=== PATIENT | male | born 1980 | race Caucasian/White ===

== ENCOUNTER 2022-03-17 19:08 | Emergency (ER) | payer OTHER, SELFPAY ==
[2022-03-17 19:27] VITALS: BP 98/64; PULSE 64; RESP 18; TEMP 36.7; O2SAT 98
--- NOTE | 2022-03-17 19:51 | ED.URI ---
HPI - URI/Sore Throat General Chief Complaint: Upper Respiratory Infection Stated Complaint: congestion,cough Time Seen by Provider: 03/17/22 19:51 Source: patient Mode of arrival: ambulatory Limitations: no limitations History of Present Illness HPI Narrative: 41-year-old male presents with complaint of sinus congestion, nasal congestion, sore throat, postnasal drainage, fatigue for 3 days. Afebrile. Is taking Mucinex and Sudafed to treat his symptoms. Reports both of his children positive for RSV. States his wanted him to come appearing be tested for everything else to Rule it out. All systems reviewed and negative except as noted above. Related Data Home Medications Medication Instructions Recorded Confirmed No Home Medications 03/17/22 03/17/22 Allergies Allergy/AdvReac Type Severity Reaction Status Date / Time No Known Allergies Allergy Verified 03/17/22 19:35 Review of Systems Review of Systems: CONSTITUTIONAL: Denies fever, chills, or sweats. Reports fatigue. EYES: Denies visual changes, redness, or discharge. ENT: Reports rhinorrhea, congestion, sore throat. Denies otalgia. CARDIOVASCULAR: Denies chest pain, palpitations, or edema. RESPIRATORY: Denies cough or dyspnea. GASTROINTESTINAL: Denies abdominal pain, nausea, vomiting, or diarrhea. GENITOURINARY: Denies dysuria or hematuria. SKIN: Denies rash or itching. MUSCULOSKELETAL: Denies back pain, joint pain, or myalgia. NEUROLOGIC: Denies headache, numbness, or weakness. PSYCHIATRIC: Denies anxiety or depression. All other systems reviewed are negative, except as documented in HPI. PMFSH Comments At time of signature, agree with nursing past medical, surgical, social and family history. There is no relevant family history pertinent to the presenting complaint. Exam Narrative: GENERAL: This is a well-nourished, well-developed patient. Patient ill-appearing but no distress. HEAD: normocephalic, atraumatic. EYES: PERRL. Sclera clear/white. Conjunctiva erythematous bilaterally. EARS: External ears normal, auditory canals clear and without drainage, Fluid bilateral TMs without erythema or perforation. NOSE: External nose normal with Clear nasal drainage, erythema to both nares. THROAT: Mucous membranes moist, posterior pharynx clear. NECK: Neck supple, non-tender without lymphadenopathy, masses or thyromegaly. CARDIOVASCULAR: Regular rate and rhythm without murmurs, gallops, or rubs. RESPIRATORY: Clear to auscultation. Breath sounds equal bilaterally. No wheezes, rales, or rhonchi. SKIN: warm, Dry, intact with no suspicious lesions or rash, good texture and turgor. NEURO: awake, alert, and oriented to person, place and time. There were no obvious focal neurologic abnormalities. EXTREMITIES: No joint tenderness, effusion, or edema noted. Course Course Level of Care: Express Care Visit Vital Signs Vital signs: Vital Signs Temperature 36.7 C 03/17/22 19:27 Pulse Rate 64 03/17/22 19:27 Respiratory Rate 18 03/17/22 19:27 Blood Pressure 98/64 L 03/17/22 19:27 Pulse Oximetry 98 03/17/22 19:27 Oxygen Delivery Room Air 03/17/22 19:27 Temperature 36.7 C 03/17/22 19:27 Pulse Rate 64 03/17/22 19:27 Respiratory Rate 18 03/17/22 19:27 Blood Pressure 98/64 L 03/17/22 19:27 Pulse Oximetry 98 03/17/22 19:27 Oxygen Delivery Room Air 03/17/22 19:27 Reviewed MDM - URI/Sore Throat MDM Narrative Medical decision making narrative: Patient is aware of diagnosis, understands and agrees to treatment plan. Anticipatory guidance given. Patient agrees to follow-up as directed and is aware of reasons to seek care at the emergency department. Portions of this record may have been created with voice recognition software Negative influenza and COVID test. Symptoms are viral. Exposure to RSV. Differential Diagnosis Differential diagnosis: Likely upper respiratory infection, sinusitis, viral infec
== END 2022-03-17 20:04 | disposition home or self-care (01) ==
PROVIDERS: Emergency Provider Nurse Practitioner Family; PCP Internal Medicine
DX: J06.9 Acute upper respiratory infection, unspecified (principal); Z20.828 Contact with and (suspected) exposure to other viral communicable diseases; Z20.822 Contact with and (suspected) exposure to COVID-19
CPT/HCPCS: 87081; 87426; 87804; 99213; C9803; G0463

== ENCOUNTER 2024-09-15 17:34 | Emergency (ER) | payer OTHER, SELFPAY ==
--- NOTE | 2024-09-15 17:36 | ED_ITS ---
HPI - Extremity Injury (Lower) General Chief Complaint: Skin/Abscess/Foreign Body Stated Complaint: RT Leg Pain Time Seen by Provider: 09/15/24 17:36 Source: patient Mode of arrival: ambulatory Limitations: no limitations History of Present Illness HPI Narrative: Patient is a 44-year-old male who presents with right a leg calf pain and swelling surrounding wound. Patient was bit by unknown insect in the area has since become red, warm to touch and tender. Denies any fever, chills, nausea, vomiting, diarrhea. Denies any red streaking from wound or drainage. Patient has tried to pop wound 2 or 3 times after showering and Related Data Allergies Allergy/AdvReac Type Severity Reaction Status Date / Time No Known Allergies Allergy Verified 09/15/24 17:47 Review of Systems 2 Review of Systems: All systems reviewed & are unremarkable except as noted in HPI and below Constitutional: Constitutional: Denies body ache(s), Denies chills, Denies fatigue, Denies fever(s), Denies headache(s), Denies malaise and Denies weakness Eyes: Eyes: Denies blurry vision, Denies irritation and Denies loss of vision ENT: Denies otalgia, Denies headache(s), Denies nasal discharge, Denies sinus pain and Denies sore throat Cardiovascular: Cardiovascular: Denies chest pain, Denies irregular heart rhythm and Denies dyspnea Respiratory: Respiratory: Denies dyspnea Gastrointestinal: Gastrointestinal: Denies abdominal pain, Denies melena, Denies hematochezia, Denies diarrhea, Denies nausea and Denies vomiting Musculoskeletal: Musculoskeletal: Denies back pain, Denies myalgias and Denies arthralgias Integumentary/Breasts: Skin/Breast: Denies pruritus, Reports erythema, Denies rash and Reports skin swelling Neurologic: Denies headache(s), Denies loss of vision and Denies weakness Psychiatric: Psychiatric: Reports no additional psychiatric complaints Endocrine: Endocrine: Denies fatigue PMFSH Comments At time of signature, agree with nursing past medical, surgical, social and family history. There is no relevant family history pertinent to the presenting complaint. Exam 2 Const: General: cooperative, healthy appearing, comfortable, no acute distress and well nourished Nutritional Appearance: well nourished O rientation/consciousness: patient oriented x3 Limitations: no limitations HENMT: Head: normal to inspection, normocephalic and atraumatic Ears: h earing grossly normal bilaterally and external ears normal Face/Nose/Sinus: N ormal external nose present, normal facial exam and face symmetric Face and sinus: normal facial exam and face symmetric Mouth: Yes lip normal Eyes: General: appearance normal, both eyes and all related structures A lignment and Position: alignment normal and position normal Periorbital: p eriorbital findings normal Eyelids: eyelids normal Pupils: Equal, round and reactive pupils present EOM: EOMs intact bilaterally Neck: Neck: normal visual inspection, full ROM and supple Chest: Chest palpation & inspection: normal inspection of the chest Resp: Effort & Inspection: normal respiratory effort and able to speak in complete sentences Auscultation: clear to auscultation bilaterally Cardio: Rate: regular rate Rhythm: regular rhythm Heart sounds: S1 normal heart sound present and S2 normal heart sound present GI: Inspection: normal to inspection Skin: General skin exam: normal color and no rashes or lesions noted Full body images: 1. 2 x 3 cm area of erythema with 3 x 4 area of induration surrounding. Scab in center with no drainage. No red streaking up the leg Neuro: General: patient oriented x3 and moves all extremities Cranial nerves: Yes Equal, round and reactive pupils present Speech: normal speech Gait exam (Neuro): Normal gait present Extrem: General: normal to inspection, full ROM and no edema Psych: Appearance: grossly normal and well kempt Mental Status: mental status grossly normal Speech and movement: Normal speech and movement present Affect: normal affect Attitude: cooperative Thought process: Normal thought process present Course Course Emergency Course: Patient is aware of diagnosis, understands and agrees to treatment plan. Anticipatory guidance given. Patient agrees to follow-up as directed and is aware of reasons to seek care at the emergency department. Portions of this record may have been created with voice recognition software Level of Care: Express Care Visit Vital Signs Vital signs: Vital Signs Temperature 36.8 C 09/15/24 17:43 Pulse Rate 73 09/15/24 17:43 Respiratory Rate 18 09/15/24 17:43 Blood Pressure 117/80 09/15/24 17:43 Pulse Oximetry 100 09/15/24 17:43 Oxygen Delivery Room Air 09/15/24 17:43 Temperature 36.8 C 09/15/24 17:43 Pulse Rate 73 09/15/24 17:43 Respiratory Rate 18 09/15/24 17:43 Blood Pressure 117/80 09/15/24 17:43 Pulse Oximetry 100 09/15/24 17:43 Oxygen Delivery Room Air 09/15/24 17:43 Reviewed MDM - Extremity Injury (Lower) MDM Narrative Medical decision making narrative: Pt well hydrated appearing, in no respiratory distress, hemodynamically stable. Recommend supportive care. The patient is stable at time of discharge the clinical impression was discussed and the patient was given the opportunity to ask questions, which were addressed as completely as possible given the information available at present. Anticipatory guidance and return to care precautions were discussed and the importance of primary care follow-up was stressed and encouraged. The patient voiced understanding of the plan, indications to return, and the need for follow-up. Exam findings show no acute concerns or changes Patient is appropriate for outpatient treatment and follow-up. Differential Diagnosis Differential diagnosis: Likely other (Cellulitis, insect bite, contact dermatitis, less likely DVT) Medical Records Attestation: I reviewed the patient's medical records. Discharge Plan Discharge Clinical Impression: Insect bites, Cellulitis Patient Disposition: Home Condition: Stable Instructions: Cellulitis (ED) Additional Instructions: Please follow up with your Primary Care Doctor within 48-72 hours - call for an appointment. Rest and elevate affected area; apply moist heat 3-4 times daily for 10-15 minutes. Clean with soap and water only; Avoid using alcohol and peroxide. Elevate the affected area if possible Please take Antibiotics as directed. For pain, you may take: Tylenol 650-1000mg by mouth every 4-6 hours. Do not exceed 4000mg in 24 hours. Advil (Ibuprofen) 600 mg by mouth every 6 hours. Do not exceed 2400mg in 24 hours. 8 AM: Tylenol 11 AM: Ibuprofen 2 PM: Tylenol 5 PM: Ibuprofen 8 PM: Tylenol 11 PM: Ibuprofen 2 AM: Tylenol 5 AM: Ibuprofen If you experience any worsening redness, swelling, streaking (red lines), fever or chills please go to the ER Patient Language: German Prescriptions: New cephalexin 500 mg capsule 500 mg PO QID 7 Days Qty: 28 0RF mupirocin 2 % ointment 1 applic topical BID Qty: 15 0RF Follow-up/Referrals: Kwame,Sandor Keys MD [Primary Care Provider] - 3 Days Time of Disposition: 18:11
--- OUTSIDE RECORDS SUMMARY | 2024-09-15 17:37 | XMS_ITS | Encounter Summary ---
Author Organization [facility] Address [address] [place] [address] Phone Care Team Providers Care Pig Machine Operator Helper Name Role Phone Sandor Puente MD Primary Care Provider [phone] Reason for Visit * Reason Comments Medication Refill Encounter Details Date Type Department Care Team (Late st Contact Info) Description 11/19/2019 Refill [facility] - Family Medicine [facility] [address] [place] [address] Sandor Puente MD [address] [address] Medication Refill Social History Tobacco Use Types Packs/Day Years Used Date Smoking Tobacco: Never Smokeless Tobacco: Never Alcohol Use Standard Drinks/Week Comments No 0 (1 standard drink = 0.6 oz pur e alcohol) PHQ-2 Answer Date Recorded PHQ-2 Score 0 12/19/2018 Sexually Active Control Partners Comments Not Currently Sex and Gender Information Value Date Recorded Sex Assigned at Not on file Legal Sex Male 12:04 AM CDT Gender Identity Not on file Sexual Orientation Not on file documented as of this encounter Miscellaneous Notes * Telephone Encounter - Sandor Puente MD - 11/19/2019 12:24 PM CDT Prescription pending signature * Telephone Encounter - Lucio Johnson RN - 11/19/2019 12:23 PM CDT Medication failed the protocol, provider to review and approve the medication order Requested Prescriptions Pending Prescriptions Disp Refills traMADol (ULTRAM) 50 MG Tablet [Pharmacy Med Name: TRAMADOL 50MG TABLETS] 60 Tab 0 Sig: TAKE 1 TABLET BY MOUTH EVERY 6 HOURS NEEDED FOR MODERATE OR MORE SEVERE PAIN Not Delegated - Analgesics: Opioid Agonists Failed - 11/19/2019 12:21 PM Failed - This refill cannot be delegated Passed - Valid encounter within last 6 months Past Office Visits Recent Outpatient Visits 4 months ago Gastroenteritis [facility] Sandor Puente MD 4 months ago Strain of lumbar region, initial encounter [facility] Sandor Puente MD 8 months ago Anxiety [facility] Sandor Duque MD 1 year ago Allergic dermatitis due to poison fran [facility] Maris Quintanilla APN, 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 1 year ago Acute left flank pain [facility] Sandor Duque MD Upcoming Appointments [facility] - Recent and Past Visits Recent Visits Date Type Provider Dept 07/17/19 Telemedicine [facility] 07/05/19 Telemedicine Sandor Puente MD [facility] 02/28/19 Office Visit Sandor Puente MD [facility] [place] 09/14/18 Office Visit Maris Mejia APN, JAJA [facility] [place] 08/17/18 Office Visit Sandor Puente MD [facility] [place] Showing recent visits within past 460 days with a meds authorizing provider and meeting all other requirements Future Appointments No visits were found meeting these conditions. Showing future appointments within next 90 days with a meds authorizing provider and meeting all other requirements * Telephone Encounter - Paris Clay - 11/19/2019 9:52 AM CDT - patient is calling in stating that he is completely out of his tramadol. Verified pharmacy with patient. Medication is already pended to med staff. Notifying medication management. 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
--- OUTSIDE RECORDS SUMMARY | 2024-09-15 17:37 | XMS_ITS | Encounter Summary ---
Author Organization [facility] Address [address] [place] [address] Phone Care Team Providers Care Event Promoter Name Role Phone Sandor Puente MD Primary Care Provider [phone] Reason for Visit * Reason Comments Medication Refill Encounter Details Date Type Department Care Team (Late st Contact Info) Description 07/13/2020 Refill [facility] [address] [place] [address] Sandor Puente MD [address] [address] Medication Refill Social History Tobacco Use Types Packs/Day Years Used Date Smoking Tobacco: Never Smokeless Tobacco: Never Alcohol Use Standard Drinks/Week Comments No 0 (1 standard drink = 0.6 oz pur e alcohol) PHQ-2 Answer Date Recorded Total Score - Questions 1-9 0 06/2020 Sexually Active Control Partners Comments Not Currently Sex and Gender Information Value Date Recorded Sex Assigned at Not on file Legal Sex Male 12:04 AM CDT Gender Identity Not on file Sexual Orientation Not on file documented as of this encounter Miscellaneous Notes * Telephone Encounter - Saniya Butterfield RN - 07/14/2020 2:30 PM CDT The original prescription was reordered on 07/14/2020 by Sandor Puente MD documented in this encounter Plan of Treatment Not on file documented as of this encounter Visit Diagnoses Not on filedocumented in this encounter Additional Health Concerns Assessment Noted Time PHQ-9 Depression Total Score: 0 05/07/19 21 3:00 PM 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
--- OUTSIDE RECORDS SUMMARY | 2024-09-15 17:37 | XMS_ITS | Encounter Summary ---
Author Organization [facility] Address [address] [place] [address] Phone Care Team Providers Care Viscose Cellar Charge Hand Name Role Phone Sandor Puente MD Primary Care Provider [phone] Reason for Visit * Reason Comments Medication Refill Encounter Details Date Type Department Care Team (Late st Contact Info) Description 06/15/2020 Refill [facility] - Family Medicine [facility] [address] [place] [address] Sandor Puente MD [address] [address] Medication Refill Social History Tobacco Use Types [...] Telephone Encounter - Saniya Butterfield RN - 06/16/2020 9:44 AM CDT The original prescription was reordered on 06/16/2020 by Sandor Puente MD * Telephone Encounter - Clendenen, Jackie, RN - 06/15/2020 3:35 PM CDT Duplicate documented in this encounter Plan of Treatment Not on file documented as of this encounter Visit Diagnoses Not on filedocumented in this encounter Additional Health Concerns Assessment Noted Time PHQ-9 Depression Total Score: 0 05/07/19 21 3:00 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
--- OUTSIDE RECORDS SUMMARY | 2024-09-15 17:37 | XMS_ITS | Clinical Summary ---
Author Organization [facility] Address [address] [place] [address] Phone Care Team Providers Care Fashion Director Name Role Phone Sandor Puente MD Primary Care Provider Allergies No known active allergies Medications No known medications Active Problems Problem Noted Date Diagnosed Date Grief reaction 11/18/2015 Depression with anxiety 11/18/2015 Immunizations Immunization Administration Dates Next Due Influenza Vaccine greater than 3 yrs 01/02/2014 Influenza Vaccine, Quadrivalent, PF 02/17/2018 Influenza, Seasonal, Injectable, Undefined 01/02 Tetanus Toxoid, Unspecified Formulation 08/03/19 14 Family History Medical History Relation Name Comments Congestive Heart Failure Mother Relation Name Status Comments Father Mother Social History Tobacco Use Types Packs/Day Years Used Date Smoking Tobacco: Never Smokeless Tobacco: Never Tobacco Cessation:Counseling Given: No Alcohol Use Standard Drinks/Week Comments No 0 (1 standard drink = 0.6 oz pur e alcohol) PHQ-2 Answer Date Recorded Total Score - Questions 1-9 0 06/2020 Sexually Active Control Partners Comments Not Currently Sex and Gender Information Value Date Recorded Sex Assigned at Not on file Legal Sex Male 12:04 AM CDT Gender Identity Not on file Sexual Orientation Not on file Last Filed Vital Signs Vital Sign Reading Time Taken Comments Blood Pressure 106/70 09/10/2022 9:56 AM CDT Pulse 58 09/10/2022 9:56 AM CDT Temperature 36.7 C (98.1 F) 09/10/2022 9:56 AM CDT Respiratory Rate 16 09/10/2022 9:56 AM CDT Oxygen Saturation 96% 09/10/2022 9:56 AM CDT Inhaled Oxygen Concentration - - Weight 93.6 kg (206 lb 4.8 oz) 09/10/2022 9:56 A M CDT Height 182.9 cm (6') 09/10/2022 9:56 AM CDT Body Mass Index 27.98 09/10/2022 9:56 AM CDT Plan of Treatment Health Maintenance Due Date Last Done Comments Hepatitis C Virus (HCV) Screening 1981 TdaP Immunization 1981 Hepatitis B Immunization (1 of 3 - 19+ 3-dose series) 2000 Influenza Immunization (#1) 12/04/202302/02, 01/02/2014, 01/02/2014 SARS-COV-2 Immunization ( season) 2023 12/09/2021, 12/08/2020, 11/17/2020 Respiratory Syncytial Virus (RSV) Immunization (Adult) (1 - 1-dose 75+ series) 2056 Meningococcal Immunization (ACWY) Aged Out No longer eligible b ased on patient's age to complete this topic Pneumococcal Immunization Combined Aged Out No longer eligible b ased on patient's age to complete this topic Rotavirus Immunization Aged Out No lo nger eligible based on patient's age to complete this topic Insurance MEDICAID [facility] Care Teams Fashion Director Relationship Specialty Start Date End Date Sandor Puente MD [address] [address] PCP - General Family Medicine 03/02/15
--- OUTSIDE RECORDS SUMMARY | 2024-09-15 17:37 | XMS_ITS | Encounter Summary ---
Author Organization [facility] Address [address] [place] [address] Phone Care Team Providers Care Steam Distribution Supervisor Name Role Phone Sandor Puente MD Primary Care Provider [phone] Reason for Visit * Reason Comments Medication Refill Encounter Details Date Type Department Care Team (Late st Contact Info) Description 09/16/2020 Refill [facility] [address] [place] [address] Sandor Puente MD [address] [address] Medication Refill Social History Tobacco Use Types [...] on file Sexual Orientation Not on file COVID-19 Exposure Response Date Recorded In the last month, have you been in contact with someone who was confirmed or suspected to have Coronavirus / COVID-19? No / Unsure 09/18/2020 12:46 PM CDT documented as of this encounter Miscellaneous Notes * Telephone Encounter - Miranda Horvath RN - 09/18/2020 8:38 AM CDT Patient returning call. Advised he needs to make an appt for med refill. RN scheduled patient today with Rocky Haq APN 09/18/20 at 1:00pm. * Telephone Encounter - Rachel Durant RMA - 09/17/2020 3:32 PM CDT Left voicemail * Telephone Encounter - Saniya Butterfield RN - 09/17/2020 11:51 AM CDT Patient needs an appointment with PCP * Telephone Encounter - Saniya Butterfield RN - 09/17/2020 8:20 AM CDT [place] 09/21/20 Medication failed the protocol, provider to review and approve the medication order if appropriate. Requested Prescriptions Pending Prescriptions Disp Refills traMADol (ULTRAM) 50 MG Tablet [Pharmacy Med Name: traMADol HCl 50 MG Oral Tablet] 120 Tablet 0 Sig: TAKE 1 TO 2 TABLETS BY MOUTH EVERY 8 HOURS NEEDED FOR MODERATE OR MORE SEVERE PAIN [facility] Not Delegated - Analgesics: Opioid Agonists Failed - 09/17/2020 8:19 AM Failed - This refill cannot be delegated Passed - Valid encounter within last 6 months Past Office Visits Recent Outpatient Visits 4 months ago Chronic midline low back pain without sciatica [facility] - Sandor Reina MD 1 year [address] [facility] - Sandor Reina MD 1 year ago Strain of lumbar region, initial encounter [facility] - Sandor Reina MD [address] [facility] - Sandor Reina MD 2 years ago Allergic dermatitis due to poison fran [facility]equielMaris Kaufman APN, [employer] P[employer]ER Upcoming Appointments [facility] - Recent and Past Visits Recent Visits Date Type Provider Dept 05/07/20 Office Visit Sandor Puente MD [facility] 07/17/19 Telemedicine Sandor Puente MD [facility] 07/05/19 Telemedicine Sandor Puente MD [facility] [place] Showing recent visits within past 460 days with a meds authorizing provider and meeting all other requirements Future Appointments No visits were found meeting these conditions. Showing future appointments within next 90 days with a meds authorizing provider and meeting all other requirements documented in this encounter Plan of Treatment Not on file documented as of this encounter Visit Diagnoses Diagnosis Moderate pain documented in this encounter Additional Health Concerns Assessment Noted Time PHQ-9 Depression Total Score: 0 05/07/19 21 3:00 PM [employer]NET[employer] T[employer] W[employer]ER documented as of this encounter Care Teams Steam Distribution Supervisor Relationship Specialty Start Date End Date Sandor Puente MD [address] [address] PCP - General Family Medicine 03/02/15 documented as of this encounter
[2024-09-15 17:43] VITALS: BP 117/80; PULSE 73; RESP 18; TEMP 36.8; O2SAT 100
== END 2024-09-15 18:12 | disposition home or self-care (01) ==
PROVIDERS: Emergency Provider Nurse Practitioner Family; PCP Internal Medicine
DX: S80.861A Insect bite (nonvenomous), right lower leg, initial encounter (principal); L03.115 Cellulitis of right lower limb; W57.XXXA Bitten or stung by nonvenomous insect and other nonvenomous arthropods, initial encounter
CPT/HCPCS: 99213; G0463